=== PATIENT | male | born 1940 | race Caucasian/White ===

== ENCOUNTER 2020-07-10 14:41 | Day surgery (SDC) | payer MEDICARE, BC ==
[2020-07-05 11:12] LABS: BASOPHILS % (AUTO) 0.7 % (0-1); EOSINOPHILS # (AUTO) 0.1 X10'3 (0-0.9); EOSINOPHILS % (AUTO) 2.1 % (0-6); HEMATOCRIT 35.8 % (42.0-52.0); LYMPHOCYTES # (AUTO) 1.2 X10'3 (1.1-4.8); LYMPHOCYTES % (AUTO) 25.5 % (21-51); MEAN CORPUSCULAR HEMOGLOBIN 30.9 PG (27.0-31.0); MEAN CORPUSCULAR HGB CONC 33.5 g/dL (33.0-36.5); MEAN CORPUSCULAR VOLUME 92.2 FL (78-98); MEAN PLATELET VOLUME 9.5 FL (7.4-10.4); MONOCYTES # (AUTO) 0.6 X10'3 (0-0.9); MONOCYTES % (AUTO) 12.4 % (2-12); NEUTROPHILS # (AUTO) 2.7 X10'3 (1.8-7.7); NEUTROPHILS % (AUTO) 59.3 % (42-75); PLATELET COUNT 159 X10'3 (140-440); RED BLOOD COUNT 3.89 X10'6 (4.70-6.10); RED CELL DISTRIBUTION WIDTH 14.6 % (11.5-14.5); WHITE BLOOD COUNT 4.5 X10'3 (4.5-11.0)
[2020-07-05 11:23] LABS: ALBUMIN 4.1 G/DL (3.4-5.0); ANION GAP 11 (8-16); BLOOD UREA NITROGEN 28 MG/DL (7-18); BUN/CREATININE RATIO 14.7 (5.4-32.0); CALCIUM 9.2 MG/DL (8.5-10.1); CHLORIDE 103 MMOL/L (99-107); CREATININE 1.91 MG/DL (0.60-1.10); GLUCOSE 137 MG/DL (70-104); POTASSIUM 5.1 MMOL/L (3.5-5.1); SODIUM 137 MMOL/L (135-145); TOTAL CARBON DIOXIDE 23.4 MMOL/L (24-32); eGFR 34 ML/MIN
[2020-07-05 11:26] LABS: PARTIAL THROMBOPLASTIN TIME 32 SECONDS (22-32)
[2020-07-10] VITALS (7 sets, daily range): BP systolic 102–141; BP diastolic 53–79
[~2020-07-10] VITALS: Ht 177.8 cm; Wt 76.7 kg
[2020-07-10] MEDS ORDERED: normal saline 1,000 ML IV SCH (14:55)
[2020-07-10] MEDS ORDERED: LORazepam 0.5 MG tablet PO PRN (14:55)
[2020-07-10] MEDS ORDERED: diphenhydrAMINE 25mg capsule PO PRN (14:55)
[2020-07-10] MEDS ORDERED: LIDOcaine/PRILOcaine 5gm cream TP ONE (14:55)
[2020-07-10] MEDS ORDERED: LISI-600 PO (15:34)
[2020-07-10] MEDS ORDERED: METO25TA6 PO (15:34)
[2020-07-10] MEDS ORDERED: OMEP-50 PO (15:34)
[2020-07-10] MEDS ORDERED: ATOR20TA66 PO (15:34)
[2020-07-10] MEDS ORDERED: AMLO5TAB16 PO (15:34)
[2020-07-10] MEDS ORDERED: APIX5TAB3 PO (15:34)
[2020-07-10] MEDS ORDERED: midazolam 2 mg/2 ml injection ONE (16:04)
[2020-07-10] MEDS ORDERED: fentaNYL/PF 50MCG/1 ML 2ML syringe ONE (16:04)
[2020-07-10] MEDS ORDERED: verapamil 2.5 mg/ml inj IV ONE (16:04)
[2020-07-10] MEDS ORDERED: LIDOcaine 1% (10mg/ml)w/preservative injection 20ml MDV ONE (16:05)
[2020-07-10] MEDS ORDERED: heparin 1,000unit/ml 10ml vial 10 ML ONE (16:05)
[2020-07-10] MEDS ORDERED: iohexol 350MG/ML 100ml bottle IV ONE (16:05)
[2020-07-10] MEDS ORDERED: nitroGLYCERIN-Tridil 50MG/D5W 250 ML IV ONE (16:05)
== END 2020-07-10 20:20 | disposition home or self-care (01) ==
LOC: SSTAY O 14:41
PROVIDERS: ATTEND Student in an Organized Health Care Education/Training Program
DX: R94.39 Abnormal result of other cardiovascular function study (principal); I25.10 Atherosclerotic heart disease of native coronary artery without angina pectoris; I25.82 Chronic total occlusion of coronary artery; I35.0 Nonrheumatic aortic (valve) stenosis; I10 Essential (primary) hypertension; E78.5 Hyperlipidemia, unspecified; I48.91 Unspecified atrial fibrillation; Z79.899 Other long term (current) drug therapy; Z79.01 Long term (current) use of anticoagulants; Z88.0 Allergy status to penicillin; Z87.891 Personal history of nicotine dependence
CPT/HCPCS: 36415; 80048; 85025; 85610; 85730; 93005; 93454; 99152; 99153; C1769; C1894; J1644; J2001; J2250; J3010; J7030; Q0163; Q9967; A4620; A5120; J3490